=== PATIENT | female | born 1935 | race Caucasian/White ===

== ENCOUNTER 2016-05-06 21:19 | Emergency (ER) | payer OTHER ==
[~2016-05-06 21:19] MED LIST: ASPI-664 PO; ATEN-51 PO; ATOR40TA68 PO; CALC500T PO; CALC500T12 PO; CARB-19 PO; CEPH-443 PO; CHOL50009 PO; DOCU-144 PO; GEMF600T PO; GLIM2TAB PO; GLIP-95 PO; HYDR-3498 PO; LISI10TA2 PO; MECL-77 PO; MELO-110 PO; OMEP40CA3 PO; OXYB5TAB PO; ROPI0.5T2 PO; VENL75CA89 PO
[2016-05-06] MEDS ORDERED: IBUP400T22 PO (22:03)
[2016-05-06] MEDS ORDERED: HYDR-905 PO (22:03)
[2016-05-06] MEDS ORDERED: METH-70 PO (22:03)
== END 2016-05-06 23:07 | disposition left against medical advice (07) ==
LOC: E/R 21:19
DX: Z53.21 Procedure and treatment not carried out due to patient leaving prior to being seen by health care provider (principal)

== ENCOUNTER 2016-07-08 14:58 | Emergency (ER) | payer OTHER ==
[~2016-07-08] VITALS: Ht 149.9 cm; Wt 83.6 kg
[~2016-07-08 14:58] MED LIST changes: +HYDR-905 PO; +IBUP400T22 PO; +METH-70 PO
[2016-07-08 15:07] VITALS: Ht 149.9 cm; Wt 83.6 kg
--- NOTE | 2016-07-08 15:44 | ERA ---
ER Documentation Chief Complaint Date/Time DATE: 07/08/16 TIME: 15:41 Chief Complaint LEFT RIB BACK PAIN X2 DAYS, DENIES INJURY OR TRAUMA HPI Pain is worse with movement and better with rest. Patient is having a difficult time walking secondary to pain. 81-year-old female with a history of back pain and degenerative disc disease. Patient's pain is from her left side to her buttocks down to the lateral right leg stopping at the knee. Patient denies loss of bowel or bladder. Patient does however complain of darkened urine. ROS All systems reviewed and are negative except as per history of present illness. Medications Home Meds Active Scripts Ibuprofen* (Motrin*) 600 Mg Tab, 600 MG PO Q6H Y for PAIN AND OR ELEVATED TEMP, #30 TAB Prov:EMILY CHAVES PA-C 07/08/16 Ibuprofen* (Motrin*) 400 Mg Tab, 400 MG PO Q8, #30 TAB Prov:SAL MORGAN DO 05/06/16 Methocarbamol* (Robaxin*) 750 Mg Tablet, 750 MG PO BID, #14 TAB Prov:SAL MORGAN DO 05/06/16 Hydrocodone/Acetaminophen ([place] 7.5-325 Tablet) 1 Each Tablet, 1 EACH PO every 4-6 hours, #20 TAB Prov:SAL MORGAN DO 05/06/16 Docusate Sodium* (Colace*) 100 Mg Capsule, 100 MG PO TID, #30 CAP Prov:ILYA WHITESIDE 09/05/15 Hydrocodone Bit-Acetaminophen* (V[place]ia*) 5-325 Mg Tab, 1 TAB PO Q6 Y for PAIN, # 20 TAB Prov:ILYA WHITESIDE 09/05/15 Cephalexin* (Keflex*) 500 Mg Capsule, 500 MG PO QID for 10 Days, CAP Prov:ILYA WHITESIDE 09/05/15 Reported Medications Calcium Carbonate* (Oysco-500*) 1 Tab Tablet, 1 TAB PO BID, TAB 09/05/15 Oxybutynin Chloride* (Ditropan* XL) 5 Mg/Bottle Tab.osm.24, 5 MG PO DAILY, TAB.SA 09/05/15 Glimepiride* (Glimepiride*) 2 Mg Tablet, 2 MG PO DAILY, TAB 09/05/15 Venlafaxine Hcl* (Venlafaxine Hcl ER*) 75 Mg Cap.er.24h, 75 MG PO DAILY, CAP 09/05/15 Meloxicam* (Mobic*) 15 Mg Tablet, 15 MG PO DAILY, #30 TAB 09/05/15 Aspirin* (Aspirin* EC) 81 Mg Tablet.dr, 81 MG PO DAILY, TAB 09/05/15 Atorvastatin* (Atorvastatin*) 40 Mg Tablet, 40 MG PO QHS, #30 TAB 02/05/15 Glipizide* (Glipizide*) 10 Mg Tablet, 10 MG PO BID, TAB 11/11/14 Cholecalciferol* (Vitamin D*) 5,000 Unit Tablet, 5000 UNIT PO DAILY, TAB 11/11/14 Calcium Carbonate* (Os-Jeff 500*) 1 Tab Tablet, 1 TAB PO BID, TAB 07/11/14 Gemfibrozil* (Lopid*) 600 Mg Tablet, 600 MG PO BID, TAB 07/11/14 Ropinirole Hcl* (Ropinirole Hcl*) 0.5 Mg Tablet, 0.5 MG PO QID, TAB 07/11/14 Carbidopa/Levodopa (Carbidopa-Levo 25-100 Tab) 1 Tab Tablet, 1 TAB PO QID 03/29/12 Atenolol* (Atenolol*) 25 Mg Tablet, 25 MG PO DAILY 03/29/12 Lisinopril* (Lisinopril*) 10 Mg Tablet, 10 MG PO DAILY 03/29/12 Meclizine Hcl* (Meclizine Hcl*) 25 Mg Tablet, 12.5 MG PO QID 03/29/12 Omeprazole* (Prilosec*) 40 Mg Capsule.dr, 40 MG PO DAILY 03/29/12 Allergies Allergies: Coded Allergies: No Known Allergies (Verified Allergy, Unknown, 07/08/16) PMhx/Soc History of Surgery: Yes (HYSTERECTOMY, APPY, KARL ) Anesthesia Reaction: No Hx Neurological Disorder: Yes (PARKINSONS DISORDER) Hx Respiratory Disorders: No Hx Cardiac Disorders: Yes (LA) Hx Psychiatric Problems: No Hx Miscellaneous Medical Probl: Yes (DM ) Hx Alcohol Use: No Hx Substance Use: No Hx Tobacco Use: No Smoking Status: Never smoker Physical Exam Vitals Vital Signs Date Time Temp Pulse Resp B/P Pulse Ox O2 Delivery O2 Flow Rate FiO2 07/08/16 15:07 99.0 69 22 167/74 97 Physical Exam Const: Obese 81-year-old female Head: Atraumatic Eyes: Normal Conjunctiva ENT: Normal External Ears, Nose and Mouth. Neck: Full range of motion..~ No meningismus. Resp: Clear to auscultation bilaterally Cardio: Regular rate and rhythm, no murmurs Abd: Soft, non tender, non distended. Normal bowel sounds Skin: No petechiae or rashes Back: No midline or flank tenderness. Patient has difficulty with left straight leg raise secondary to pain. Mild pain with deep palpation in the left buttocks in the area of the sciatic nerve. Ext: No cyanosis, or edema Neur: Awake and alert. Neurovascularly intact. Pulses 2+ in the posterior tibialis and dorsalis pedis. DTRs 2+ on patellas bilaterally. Psych: Normal Mood and Affect Results 24 hrs Laboratory Tests Test 07/08/16 15:57 Bedside Urine pH (LAB) 7.0 Bedside Urine Protein (LAB) Negative Bedside Urine Glucose (UA) Negative Bedside Urine Ketones (LAB) Negative Bedside Urine Blood Trace-intact Bedside Urine Nitrite (LAB) Negative Bedside Urine Leukocyte Esterase (L Negative Current Medications Medications (Trade) Dose Ordered Sig/Minna Route PRN Reason Start Time Stop Time Status Last Admin Dose Admin Acetaminophen/ Hydrocodone Bitart ([place] (5/325)) 1 tab ONCE ONCE PO 07/08/16 16:00 07/08/16 16:01 DC 07/08/16 15:53 Procedures/MDM Patient has a chief complaint of back pain. Back pain has been getting worse over the past 8 days. Patient denies any symptoms that would make me believe of spinal cord impingement or neurovascular compromise. Patient is able to walk albeit secondary to pain. Patient is a 57-year-old so we will go ahead and get an x-ray as first-line imaging modality. Patient's x-ray was unremarkable. Patient's vitals are stable and is appropriate to discharge at this time with primary diagnosis being back pain with sciatica sprained on the right leg. No current suspicion for cauda equina syndrome. Departure Diagnosis: Primary Impression: Back pain Qualified Code: M54.41 - Right-sided low back pain with right-sided sciatica, unspecified chronicity Additional Impression: Sciatic leg pain Condition: Stable Additional Instructions: Follow up with your PCP within the next 1-3 days for a more thorough evaluation and a possible referral to a specialist. Return the the emergency department immediately if symptoms worsen or change. If you have any questions regarding medications, ask your pharmacist or us before you leave. If any adverse reactions occur while taking your medications, discontinue the treatment and return to the emergency department immediately. Take your medications as directed, and complete the entire course of treatment. EMILY CHAVES PA-C July 08, 2016 15:44
[2016-07-08 15:55] LABS: URINE BLOOD (Dip) POC Trace-intact (NEGATIVE)
[2016-07-08] MEDS ORDERED: HYDROCODONE/APAP (5/325) TAB PO ONE (16:00)
--- NOTE | 2016-07-08 16:51 | RADRPT ---
PROCEDURE: XR Lumbar Spine. CLINICAL INDICATION: Back pain. TECHNIQUE: Three views. AP, lateral and cone-down lateral view of the lumbar spine were obtained. COMPARISON: No prior studies are available for comparison. FINDINGS: There is mild lumbar scoliosis convex right. Alignment is otherwise normal. There is no fracture. There is no lytic or blastic lesion. There are degenerative changes with disk space narrowing and osteophytes at L3-4 and L4-5. There is hypertrophy of the facet joints at L3-4, L4-5, and L5-S1. The paravertebral soft tissues are unremarkable. IMPRESSION: 1. Mild lumbar scoliosis convex right. 2. Degenerative change. 3. No acute abnormality. RPTAT: QQ .Selvin Childress MD, MD Date Time Electronically viewed and signed by .Selvin Childress MD, MD on 07/08/2016 16:51 .R/
[2016-07-08] MEDS ORDERED: IBUP-1542 PO (16:55)
== END 2016-07-08 17:18 | disposition home or self-care (01) ==
LOC: FTE 14:58
DX: M54.41 Lumbago with sciatica, right side (principal); E11.9 Type 2 diabetes mellitus without complications; Z79.82 Long term (current) use of aspirin; Z79.84 Long term (current) use of oral hypoglycemic drugs
CPT/HCPCS: 72100; 81003; Z7502; Z7610

== ENCOUNTER 2017-09-01 16:21 | Emergency (ER) | END 2017-09-02 02:53 | disposition home or self-care (01) ==